=== PATIENT | female | born 1955 | race Caucasian/White ===

== ENCOUNTER → 2017-02-10 | Outpatient (CLI) | payer BC ==
[~2017-02-10] MED LIST: ALEN70SO PO; ALIVTAB3 PO; BIOT2500 PO; CALC500T21 PO; D 50CAP PO; MILKSUS PO; VITA500C10 PO
[2017-02-10 18:07] LABS: ALBUMIN 4.3 GM/DL (3.2-5.2); ALBUMIN/GLOBULIN RATIO 1.23 (1.00-1.93); ALKALINE PHOSPHATASE 73 U/L (45-117); ALT/SGPT 32 U/L (12-78); ANION GAP 10 MEQ/L (8-16); AST/SGOT 19 U/L (15-37); BILIRUBIN,TOTAL 0.3 MG/DL (0.2-1.0); BLOOD UREA NITROGEN 20 MG/DL (7-18); CALCIUM LEVEL 8.4 MG/DL (8.8-10.2); CARBON DIOXIDE LEVEL 26 MEQ/L (21-32); CHLORIDE LEVEL 105 MEQ/L (98-107); COMPLEMENT C3 98.2 MG/DL (90-180); COMPLEMENT C4 16.6 MG/DL (10-40); CREATININE FOR GFR 0.73 MG/DL (0.55-1.02); GLOMERULAR FILTRATION RATE > 60.0 (>45); GLUCOSE, FASTING 89 MG/DL (80-110); POTASSIUM SERUM 4.3 MEQ/L (3.5-5.1); SODIUM LEVEL 141 MEQ/L (136-145); THYROXINE (T4) 7.1 UG/DL (4.5-12.0); TOTAL PROTEIN 7.8 GM/DL (6.4-8.2)
[2017-02-10 18:23] LABS: EOS # 0.2 K/mm3 (0.0-0.50); EOS % 3.5 % (0.0-3.0); LARGE UNSTAINED CELL # 0.1 K/mm3 (0.0-0.4); LARGE UNSTAINED CELL % 1.9 % (0.0-4.0); LYMPH # 1.7 K/mm3 (1.5-4.5); LYMPH % 32.6 % (24.0-44.0); MEAN CORPUSCULAR HEMOGLOBIN 31.5 pg (27.0-33.0); MEAN CORPUSCULAR HGB CONC 34.2 g/dl (32.0-36.5); MEAN CORPUSCULAR VOLUME 92.1 fl (80.0-96.0); MONO # 0.3 K/mm3 (0.0-0.8); MONO % 5.6 % (0.0-5.0); NEUTROPHILS # 2.7 K/mm3 (1.8-7.7); NEUTROPHILS % 55.4 % (36.0-66.0); PLATELET COUNT, AUTOMATED 258 k/mm3 (150-450); RED CELL DISTRIBUTION WIDTH 12.7 % (11.5-14.5); WHITE BLOOD COUNT 4.9 K/mm3 (4.0-10.0)
[2017-02-10 18:51] LABS: ERYTHROCYTE SEDIMENTATION RATE 10 mm/hr (0-30)
[2017-02-11 11:53] LABS: THYROID PEROXIDASE ANTIBODY < 28.0 U/ML (<60.0)
[2017-02-13 00:07] LABS: COMPLEMENT TOTAL (CH50) 61 U/mL (42-60)
== END ==
LOC: M SMT 12:16
PROVIDERS: ATTEND Allergy & Immunology Allergy
DX: L30.9 Dermatitis, unspecified (principal)

== ENCOUNTER 2017-10-16 06:44 | Day surgery (SDC) | payer BC ==
[2017-10-16] MEDS: NS 1,000 ML IV (07:15)
[2017-10-16] MEDS ORDERED: PROPOFOL 200 MG/20 ML VIAL As Ordered ×2 (07:25→07:43)
== END 2017-10-16 08:26 | disposition home or self-care (01) ==
LOC: M OPP 06:44
DX: Z12.11 Encounter for screening for malignant neoplasm of colon (principal); Q43.8 Other specified congenital malformations of intestine; K64.8 Other hemorrhoids; K21.9 Gastro-esophageal reflux disease without esophagitis; M81.0 Age-related osteoporosis without current pathological fracture; F41.9 Anxiety disorder, unspecified; F32.9 Major depressive disorder, single episode, unspecified; Z79.899 Other long term (current) drug therapy; Z88.8 Allergy status to other drugs, medicaments and biological substances; Z91.048 Other nonmedicinal substance allergy status; Z96.649 Presence of unspecified artificial hip joint; Z98.890 Other specified postprocedural states
CPT/HCPCS: 45378

== ENCOUNTER → 2020-10-25 | Outpatient (CLI) | payer BC ==
[~2020-10-25] MED LIST changes: +BELS1TAB2 PO; +CALC1TAB23 PO; +MILK120011 PO; -MILKSUS PO; +MIRA3350 PO; +OMEP1CAP73 PO; +SUPECAP24 PO; +ZOLO50TA PO
--- NOTE | 2020-10-25 13:38 | REP ---
INDICATION: CONTUSION COMPARISON: None. TECHNIQUE: AP, lateral, bilateral oblique views right foot. FINDINGS: Generalized age-related changes are appreciated along with mild swelling over the 5th metatarsophalangeal joint. No acute fracture or dislocation. No subcutaneous emphysema or foreign body.. IMPRESSION: Age-related changes and mild lateral swelling. No acute fracture or dislocation. <Electronically signed by Rodriguez Hale > 10/25/20 [id number]
== END ==
LOC: M WUC 11:01
PROVIDERS: ATTEND Physician Assistant
DX: S90.31XA Contusion of right foot, initial encounter (principal); X58.XXXA Exposure to other specified factors, initial encounter; Y92.89 Other specified places as the place of occurrence of the external cause; Y93.89 Activity, other specified; Y99.8 Other external cause status

== ENCOUNTER → 2021-12-23 | Outpatient (CLI) | payer MEDICARE ==
[~2021-12-23] MED LIST changes: -ALEN70SO PO; +ALEN70SO2 PO
== END ==
LOC: M RAD 09:10 → M LAB 09:10
PROVIDERS: ATTEND Family Medicine
DX: R31.9 Hematuria, unspecified (principal); R30.0 Dysuria

== ENCOUNTER 2023-04-26 23:10 | Emergency (ER) | payer MEDICARE ==
[~2023-04-26] VITALS: Ht 167.6 cm; Wt 68.2 kg
[2023-04-27] MEDS ORDERED: IBUPROFEN 600MG TAB PO ONE (02:00)
[2023-04-27] MEDS ORDERED: KETOROLAC 60MG 2ML VIAL IM ONE (08:15)
[2023-04-27 08:31] VITALS: BP 157/89; TEMP 97; O2SAT 97
[2023-04-27] MEDS ORDERED: OXYC-517 PO (11:44)
[2023-04-27] MEDS ORDERED: ZOLO100T PO (14:05)
[2023-04-27] MEDS ORDERED: MAGN400C2 PO (14:05)
[2023-04-27] MEDS ORDERED: CALCTAB89 PO (14:05)
== END 2023-04-27 08:45 | disposition home or self-care (01) ==
LOC: M ED 23:10
DX: S52.611A Displaced fracture of right ulna styloid process, initial encounter for closed fracture (principal); W08.XXXA Fall from other furniture, initial encounter; Y92.009 Unspecified place in unspecified non-institutional (private) residence as the place of occurrence of the external cause; Z96.641 Presence of right artificial hip joint; Z88.2 Allergy status to sulfonamides; Z88.8 Allergy status to other drugs, medicaments and biological substances; Z91.048 Other nonmedicinal substance allergy status; Z79.83 Long term (current) use of bisphosphonates; Z79.899 Other long term (current) drug therapy
CPT/HCPCS: 73110; 96372; 99283; J1885

== ENCOUNTER 2023-04-29 10:17 | Day surgery (SDC) | payer MEDICARE ==
[~2023-04-29] VITALS: Ht 170.2 cm; Wt 71.2 kg
[~2023-04-29 10:17] MED LIST changes: +CALCTAB89 PO; +MAGN400C2 PO; +OXYC-517 PO; +ZOLO100T PO
[2023-04-29] MEDS ORDERED: LR 1,000 ML IV SCH ×2 (10:25→15:30)
[2023-04-29] MEDS ORDERED: ceFAZolin 2 GM/D5W 50 ML IV BAG As Ordered ONE (14:07)
[2023-04-29] MEDS ORDERED: METOCLOPRAMIDE INJ 10MG/2ML VIAL As Ordered ONE (14:25)
[2023-04-29] MEDS ORDERED: dexmedeTOMIDine (4MCG/ML)200MCG/50ML BTL (PRECEDEX) As Ordered ONE (14:25)
[2023-04-29] MEDS ORDERED: LIDOCAINE 2% 100MG/5ML SDV (FOR ANES.) As Ordered ONE (14:25)
[2023-04-29] MEDS ORDERED: MIDAZOLAM INJ 2MG/2ML VIAL As Ordered ONE (14:25)
[2023-04-29] MEDS ORDERED: fentaNYL 250 MCG/5 ML INJECTION As Ordered ONE (14:25)
[2023-04-29] MEDS ORDERED: ONDANSETRON 4MG 2ML VIAL As Ordered ONE (14:25)
[2023-04-29] MEDS ORDERED: KETOROLAC 60MG 2ML VIAL As Ordered ONE (14:25)
[2023-04-29] MEDS ORDERED: propofoL 200 MG/20 ML VIAL As Ordered ONE (14:25)
[2023-04-29] MEDS ORDERED: ROCURONIUM BROMIDE 50MG/5ML VIAL As Ordered ONE (14:25)
[2023-04-29] MEDS ORDERED: SUGAMMADEX SODIUM 500 MG/5 ML VIAL (BRIDION) As Ordered ONE (14:26)
[2023-04-29] MEDS ORDERED: HYDROMORPHONE HCL 0.5 MG/ 0.5 ML SYRINGE IV PRN (15:30)
[2023-04-29] MEDS ORDERED: fentaNYL 100 MCG/2 ML INJECTION IV PRN (15:30)
[2023-04-29] MEDS ORDERED: ONDANSETRON 4MG 2ML VIAL IV PRN (15:30)
[2023-04-29] MEDS ORDERED: oxyCODONE 5MG TAB PO PRN (15:30)
[2023-04-29] MEDS ORDERED: OXYC-517 PO (15:39)
[2023-04-29] MEDS ORDERED: LABETALOL 100MG/20ML VIAL IV STA (16:03)
[2023-04-29 17:05] VITALS: BP 152/74; TEMP 97.1; O2SAT 97
== END 2023-04-29 17:28 | disposition home or self-care (01) ==
LOC: M SDC 10:17
PROVIDERS: ATTEND Orthopaedic Surgery
DX: S52.571A Other intraarticular fracture of lower end of right radius, initial encounter for closed fracture (principal); W19.XXXA Unspecified fall, initial encounter; Y92.89 Other specified places as the place of occurrence of the external cause; Y93.9 Activity, unspecified; Y99.9 Unspecified external cause status; K21.9 Gastro-esophageal reflux disease without esophagitis; M81.0 Age-related osteoporosis without current pathological fracture; F41.9 Anxiety disorder, unspecified; F32.A Depression, unspecified; Z91.040 Latex allergy status; Z88.2 Allergy status to sulfonamides; Z88.1 Allergy status to other antibiotic agents; Z88.8 Allergy status to other drugs, medicaments and biological substances; Z92.21 Personal history of antineoplastic chemotherapy; Z92.3 Personal history of irradiation
CPT/HCPCS: 25609; 76000; 93005; C1713; J0665; J0690; J1100; J1885; J2250; J2405; J2765; J3010

== ENCOUNTER → 2023-05-04 | Outpatient (CLI) | payer MEDICARE | LOC: M SOG 07:59 | PROVIDERS: ATTEND Physician Assistant | DX: S52.571A Other intraarticular fracture of lower end of right radius, initial encounter for closed fracture (principal); Y93.9 Activity, unspecified; Y92.9 Unspecified place or not applicable ==

== ENCOUNTER → 2023-06-01 | Outpatient (CLI) | payer MEDICARE | LOC: M SOG 11:05 | PROVIDERS: ATTEND Physician Assistant | DX: S52.571D Other intraarticular fracture of lower end of right radius, subsequent encounter for closed fracture with routine healing (principal); S52.611K Displaced fracture of right ulna styloid process, subsequent encounter for closed fracture with nonunion ==

== ENCOUNTER → 2023-07-06 | Outpatient (CLI) | payer MEDICARE | LOC: M SOG 07:58 | PROVIDERS: ATTEND Physician Assistant | DX: M25.531 Pain in right wrist (principal); Z87.81 Personal history of (healed) traumatic fracture ==

== ENCOUNTER → 2024-10-17 | Outpatient (CLI) | payer MEDICARE ==
[2024-10-17 12:56] LABS: BASO % 0.4 % (0.0-1.0); EOS # 0.1 10^3/uL (0.0-0.5); EOS % 1.4 % (0.0-3.0); HEMATOCRIT 42.8 % (36.0-47.0); HEMOGLOBIN 14.7 g/dl (12.0-15.5); LYMPH # 1.7 10^3/uL (1.5-5.0); LYMPH % 23.4 % (24.0-44.0); MEAN CORPUSCULAR HEMOGLOBIN 30.6 pg (27.0-33.0); MEAN CORPUSCULAR HGB CONC 34.3 g/dl (32.0-36.5); MEAN CORPUSCULAR VOLUME 89.2 fl (80.0-96.0); MONO # 0.5 10^3/uL (0.0-0.8); MONO % 6.1 % (2.0-8.0); NEUTROPHILS % 68.4 % (36.0-66.0); PLATELET COUNT, AUTOMATED 286 10^3/uL (150-450); WHITE BLOOD COUNT 7.3 10^3/uL (4.0-10.0)
[2024-10-17 13:08] LABS: FREE T4 1.02 NG/DL (0.89-1.76); THYROID STIMULATING HORMONE 1.432 uIU/ML (0.55-4.78)
[2024-10-17 13:09] LABS: ALBUMIN 4.3 G/DL (3.2-5.2); BILIRUBIN,TOTAL 0.9 MG/DL (0.3-1.2); CALCIUM LEVEL 9.8 MG/DL (8.3-10.6); CHOLESTEROL RISK RATIO 3.11 (<5); CREATININE FOR GFR 1.06 MG/DL (0.55-1.30); GLOMERULAR FILTRATION RATE 56.5 (>39); HDL CHOLESTEROL 71.6 MG/DL (>40); MAGNESIUM LEVEL 2.2 MG/DL (1.8-2.4); NON-HDL-C 151.4 MG/DL; TOTAL PROTEIN 7.7 G/DL (5.7-8.2)
== END ==
LOC: M LAB 12:00
PROVIDERS: ATTEND Physician Assistant
DX: I10 Essential (primary) hypertension (principal); I45.6 Pre-excitation syndrome; R94.31 Abnormal electrocardiogram [ECG] [EKG]

== ENCOUNTER → 2024-10-18 | Outpatient (CLI) | payer MEDICARE | LOC: M CARPUL 12:42 | PROVIDERS: ATTEND Physician Assistant | DX: R06.02 Shortness of breath (principal) ==